=== PATIENT | male | born 1980 | race Two or more races ===

== ENCOUNTER 2018-03-31 12:07 | Emergency (ER) | payer OTHER ==
[~2018-03-31] VITALS: Ht 180.3 cm; Wt 81.8 kg
[2018-03-31 13:06] VITALS: BP 139/69
== END 2018-03-31 13:07 | disposition home or self-care (01) ==
LOC: ER 12:08
DX: Z00.8 Encounter for other general examination (principal)
CPT/HCPCS: 99281